=== PATIENT | female | born 1980 | race Caucasian/White ===

== ENCOUNTER 2017-12-15 22:38 | Emergency (ER) | payer MEDICAID, OTHER ==
[~2017-12-15] VITALS: Ht 175.3 cm; Wt 68.0 kg
--- NOTE | 2017-12-15 23:19 | ED Lower Extremity ---
General Chief Complaint: Lower Extremity Stated Complaint: BILAT FOOT SWELLING/LEG PAIN Nursing Triage Note: PT REPORTS BILATERAL FOOT SWELLING X1 MONTH. STATES "MORE PURPLE/PAINFUL" TONIGHT. DENIES INJURY Nursing Sepsis Screen: No Definite Risk Source: patient Exam Limitations: no limitations History of Present Illness Date Seen by Provider: Dec 15, 2017 Time Seen by Provider: 23:06 Initial Comments Patient presents to the ER by private conveyance with a chief complaint that for about a month now she is noticing swelling in her feet and today they started hurting which is unusual for her. She has no known history of coronary or CHF. 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 She says she's having no shortness of breath cough, wheezing, chest pain. She does have a little ache in her feet. She does not follow with a primary care doctor because she says she hates doctors. She is quit smoking several years ago. She does not drink alcohol. She does have passive smoke exposure. She has not tried any Tylenol, Motrin or propping her feet up or compression stockings. Allergies and Home Medications Allergies Coded Allergies: Penicillins (Verified Allergy, Unknown, 12/15/17) Home Medications No Active Prescriptions or Reported Meds Patient Home Medication List Home Medication List Reviewed: Yes Constitutional: No chills, No diaphoresis EENTM: No ear pain, No eye pain Respiratory: No cough, No short of breath Cardiovascular: No chest pain, No Hx of Intervention, No palpitations, No syncope, No vascular heart diseas Gastrointestinal: No abdominal pain, No constipation, No diarrhea, No nausea, No vomiting Genitourinary: No discharge, No dysuria Musculoskeletal: No back pain, No joint pain; other (trace nonpitting swelling on both feet but not of the ankle or calf) Past [id number] Hx Patient Social History Alcohol Use: Denies Use Recreational Drug Use: No 2nd Hand Smoke Exposure: No Recent Foreign Travel: No Contact w/Someone Who Travel: No Recent Infectious Disease Expo: No Recent Hopitalizations: No Immunizations Up To Date Tetanus Booster (TDap): Unknown Seasonal Allergies Seasonal Allergies: No Past Medical History Surgeries: Yes Section Respiratory: No Cardiac: No Neurological: No Genitourinary: No Gastrointestinal: No Musculoskeletal: No Endocrine: No HEENT: No Cancer: No Psychosocial: No Integumentary: No Blood Disorders: No Physical Exam Vital Signs Vital Signs - First Documented 12/15/17 22:45 Temp 96.8 Pulse 67 Resp 18 B/P (MAP) 119/70 (86) Pulse Ox 100 O2 Delivery Room Air Capillary Refill : Less Than 3 Seconds General Appearance: WD/WN, no apparent distress HEENT: PERRL/EOMI, pharynx normal Neck: non-tender, full range of motion, supple, normal inspection (negative for JVD) Cardiovascular: normal peripheral pulses, regular rate, rhythm, no murmur Respiratory: chest non-tender, lungs clear, normal breath sounds, no respiratory distress, no accessory muscle use Feet: bilateral foot non-tender, bilateral foot normal range of motion, bilateral foot no evidence of injury, bilateral foot other (bilateral symmetric Ortiz swelling of both feet but no pitting edema. Dorsal pedal pulses are 2 out of 4 bilateral symmetric) Neurologic/Tendon: normal sensation, normal motor functions, normal tendon functions Neurologic/Psychiatric: alert, oriented x 3 Skin: normal color, warm/dry Progress/Results/Core Measures Results/Orders Vital Signs/I&O 12/15/17 22:45 Temp 96.8 Pulse 67 Resp 18 B/P (MAP) 119/70 (86) Pulse Ox 100 O2 Delivery Room Air Blood Pressure Mean: 86 Progress Progress Note : Time: 23:18 Progress Note Patient appears to have gravity dependent edema. No evidence of an exacerbation of any heart failure. No history of heart failure. Her distant use of drugs is concerning and we have discussed that a appropriate way to work this up would be with her primary care doctor outpatient. She says she is from [place] and we have encouraged her to follow up outpatient for this and other maintenance. She is agreed with this plan. Departure Impression Primary Impression: Dependent edema Disposition: 01 HOME, SELF-CARE Condition: Stable Departure-Patient Inst. Decision time for Depature: 23:19 Referrals: NO,LOCAL PHYSICIAN (PCP/Family) Primary Care Physician Patient Instructions: Dependent Edema (DC) Add. Discharge Instructions: Keep your feet elevated above the level of your heart when possible. Wear compression stockings that are available at most pharmacies. Establish care with a primary care, general or family medicine doctor and discuss your concerns to pursue an outpatient workup. You may also use Tylenol 1000 mg every 8 hours in addition to ibuprofen 800 mg every 8 hours. All discharge instructions reviewed with patient and/or family. Voiced understanding. Scripts No Active Prescriptions or Reported Meds AIDE FRIEND Dec 15, 2017 23:19
[2017-12-15 23:24] VITALS: BP 119/70
== END 2017-12-15 23:22 | disposition home or self-care (01) ==
LOC: ER 22:41
DX: R60.0 Localized edema (principal); Z87.59 Personal history of other complications of pregnancy, childbirth and the puerperium; Z88.0 Allergy status to penicillin
CPT/HCPCS: 99283